=== PATIENT | male | born 1965 | race Caucasian/White ===

== ENCOUNTER → 2018-10-01 | Outpatient (CLI) | payer BC ==
[~2018-10-01] MED LIST: ASPI81TA94 PO; CYCL10TA29 PO; FAMO20TA28 PO; GLUC-135 PO; GLUC-232 PO; LAN30PT PO; LANS15CA32 PO; LANS15CA38 PO; LOSA50TA80 PO; MULT-865 PO; PANT40TA65 PO
[2018-10-01 11:37] LABS: PLATELET COUNT, AUTOMATED 281 K/uL (150-450)
== END ==
LOC: LAB 10:15
PROVIDERS: ATTEND Internal Medicine
DX: Z12.5 Encounter for screening for malignant neoplasm of prostate (principal); Z00.00 Encounter for general adult medical examination without abnormal findings; K21.9 Gastro-esophageal reflux disease without esophagitis; I10 Essential (primary) hypertension; J02.9 Acute pharyngitis, unspecified; R50.9 Fever, unspecified
CPT/HCPCS: 36415; 81001; 85025; 86308

== ENCOUNTER → 2018-10-17 | Outpatient (CLI) | payer BC ==
[~2018-10-17] MED LIST changes: +ATOR20TA65 PO; +LOSA100T75 PO
--- NOTE | 2018-10-18 10:18 | EKG ---
FACILITY: [facility] PATIENT NAME: MELLISA MEI : [id number] MR: [id number]: [id number] EXAM DATE: ORDERING PHYSICIAN: CARMEN LIU TECHNOLOGIST: JOHNY Beaver Reason : PALPITATIONS Blood Pressure : / mmHG Vent. Rate : 080 BPM Atrial Rate : 080 BPM P-R Int : 170 ms QRS Dur : 092 ms QT Int : 342 ms P-R-T Axes : 021 096 039 degrees QTc Int : 394 ms Sinus rhythm with marked sinus arrhythmia Otherwise normal ECG When compared with ECG of 26-FEB-2014 22:43, QRS axis shifted right QT has shortened Confirmed by Trenton Brian ([id number] on 10/18/2018 6:53:01 PM Referred By: Confirmed By:Trenton Ibrahim
== END ==
LOC: RESP 10:47
PROVIDERS: ATTEND Internal Medicine
DX: Z02.9 Encounter for administrative examinations, unspecified (principal)